=== PATIENT | male | born 1960 | race Caucasian/White ===

== ENCOUNTER → 2017-09-28 09:59 | Outpatient (CLI) | payer SELFPAY ==
--- NOTE | 2017-09-28 10:05 | RAD_ITS ---
STUDY: X-RAY - LUMBAR SPINE REASON FOR EXAM: Male, 57 years old. Low back pain and right-sided pain. TECHNIQUE: 5 view(s) of the lumbar spine were obtained including oblique views. COMPARISON: None FINDINGS: Normal lumbar lordosis. There is no substantial scoliosis. Right 1 anterolisthesis of L5 on S1 with spondylolysis of the pars interarticularis of the L5 vertebrae. Anterior spondylosis at the T11-T12 and T12-L1 levels with disc space narrowing. There is atherosclerotic calcification of the abdominal aorta without a demonstrated aneurysm. RAD/L/S Spine Min 4 Views IMPRESSION: Degenerative changes of the spine, as detailed above. Grade 1 anterolisthesis of L5 on S1 with spondylolysis of the pars intraarticularis of the L5 vertebrae. Electronically Signed: Abner Ortiz MD at 8:21 EDT Tel [phone], Service support ,
--- NOTE | 2017-09-28 10:05 | RAD_ITS ---
STUDY: X-RAY - PELVIS AND RIGHT HIP REASON FOR EXAM: Male, 57 years old. Chronic right hip pain. TECHNIQUE: Radiological exam, hip, unilateral, with pelvis when performed; 2 or 3 views. COMPARISON: None. FINDINGS: There is a non-specific bowel gas pattern. Normal visualized soft tissue structures. Normal bilateral iliac wings, sacroiliac joints and visualized sacrum. Normal bilateral superior and inferior pubic rami. Normal pubic symphysis. Normal bilateral ischial tuberosities. There are osteoarthritic changes of the femoral head with marginal osteophyte formation. There is widening of the femoral neck. Femoral acetabular impingement should be ruled out. There is osteoarthritic spur formation of the acetabular rim. is severe articular joint space narrowing of the hip. RAD/Hip 2-3 Views with Pelvis IMPRESSION: Marked degree of osteoarthritis involving the right hip joint with evidence of femoral acetabular impingement. Electronically Signed: Abner Ortiz MD at 8:19 EDT Tel [phone], Service support ,
== END ==
PROVIDERS: Family Provider Nurse Practitioner Family; PCP Nurse Practitioner Family; Visit Provider Nurse Practitioner Family
DX: M54.31 Sciatica, right side (principal); M25.551 Pain in right hip; G89.29 Other chronic pain
CPT/HCPCS: 72110; 73502

== ENCOUNTER → 2019-02-20 | Outpatient (CLI) | payer SELFPAY ==
[2019-02-20 13:14] VITALS: BMI 37.8
--- NOTE | 2019-02-20 15:07 | VDLE_ITS ---
Reason For Study: Pain RIGHT LEFT CFV is compressible, spontaneous, phasic, CFV is compressible, spontaneous, phasic, competent and demonstrates normal competent, and demonstrates normal augmentation. augmentation. FV is compressible, spontaneous, phasic, competent and demonstrates normal augmentation. POP V is compressible, spontaneous, phasic, competent and demonstrates normal augmentation. T/P Trunk is compressible. PTV is compressible. RT PerV is compressible. Acute superficial vein thrombosis is noted in the right GSV from the knee to prox thigh. Procedure Exam performed in department. A preliminary report was called and/or faxed to [facility]. Interpretation Summary Deep veins of the right lower extremity are patent and compressible segmentally. There is no evidence of right lower extremity deep vein thrombosis. Valvular competence appears intact within the proximal deep venous system on the right . Acute superficial thrombophlebitis is noted in the right great saphenous vein from the knee to the proximal thigh. Ordering Physician: Wan Miguel Referring Physician: Anupam Greco M.D. Performed By: Colleen Hernandez RVT
== END | disposition home or self-care (01) ==
LOC: CVS 15:05
PROVIDERS: Family Provider Family Medicine; PCP Family Medicine; Referring Provider Nurse Practitioner Family; Visit Provider Nurse Practitioner Family
DX: M79.651 Pain in right thigh (principal)
CPT/HCPCS: 93971

== ENCOUNTER → 2020-07-18 09:17 | Outpatient (CLI) | payer SELFPAY ==
[2020-07-17 08:30] VITALS: BMI 28.7
--- NOTE | 2020-07-18 09:20 | US_ITS ---
STUDY: ABDOMINAL ULTRASOUND - RIGHT UPPER QUADRANT REASON FOR VISIT: Male, 60 years old epigastric pain TECHNIQUE: Ultrasound evaluation of the right upper quadrant was performed with real-time and static waters-scale imaging. TECHNICAL QUALITY: Adequate. COMPARISON: None. FINDINGS: Liver: The liver measures 15.4 cm. There is normal echogenicity of the liver. The bile ducts are within normal limits. There is hepatic color flow. The direction of portal flow is hepatopetal. There is no demonstrated mass lesion. Gallbladder: Normal distended gallbladder. The gallbladder wall measures 2.0 mm. There is a negative sonographic Barber''s sign. There is no pericholecystic fluid. There are no gallstones. Common Bile Duct (C.B.D.): The common bile duct measures 3.0 mm. Pancreas: Normal size of the head, body and tail of the pancreas. There is normal echogenicity of the pancreas. There is no demonstrated pancreatic mass or cyst. Right Kidney: Normal size of the right kidney. The right kidney measures 10.1 cm x 6 cm x 6.4 cm. Normal renal cortex. The right cortex measures 2.4 cm. There is no demonstrated renal mass or cyst. There is no right hydronephrosis. US/Gallbladder IMPRESSION: Normal right upper quadrant ultrasound examination. Electronically Signed: Abner Ortiz, at 10:20 EST , Service support ,
[2020-07-18 10:43] LABS: Lipase 104 U/L (73-393)
== END ==
PROVIDERS: PCP Internal Medicine; Referring Provider Surgery; Visit Provider Surgery
DX: R10.13 Epigastric pain (principal)
CPT/HCPCS: 36415; 76705; 83690

== ENCOUNTER 2020-07-29 05:49 | Day surgery (SDC) | payer SELFPAY ==
[2020-07-17 08:30] VITALS: BMI 28.7
--- NOTE | 2020-07-29 06:16 | HP.PCM_ITS ---
Problem List (1) Screening for malignant neoplasm of intestine Status: Acute (2) Epigastric abdominal pain Status: Acute (3) GERD (gastroesophageal reflux disease) Status: Chronic Qualifiers: History and Physical Date of Admission: 07/29/20 Intake Visit Reasons: EGD Chief Complaint: epigastric pain, screening colonoscopy Bending Frame Operator Required: No Is patient in pain?: No Allergies No Known Allergies Allergy (Verified 07/17/20 08:32) Medications loratadine 10 mg tablet 10 mg PO DAILY PRN 03/23/19 [History Confirmed 07/17/20] lisinopril 20 mg tablet 20 mg PO QDAY #90 tab 06/03/20 [Rx Confirmed 07/17/20] famotidine 20 mg tablet 20 mg PO BID #60 tab 07/08/20 [Rx Confirmed 07/17/20] sucralfate 1 gram tablet 1 g PO QACHS #30 tab 07/09/20 [Rx Confirmed 07/17/20] [facility] Medical History (Updated 07/17/20 @ 08:[address] Ivan Kirkland MD) Screening for malignant neoplasm of intestine (Acute) Epigastric abdominal pain (Acute) Degenerative joint disease of right hip (Chronic) Hypertension (Chronic) Sciatica, right side (Acute) GERD (gastroesophageal reflux disease) (Acute) Chronic back pain (Chronic) HTN (hypertension) (Chronic) Osteoarthritis (Chronic) DVT (deep venous thrombosis) (Resolved) Surgical History History of right hip replacement (Acute) Family History Father Heart disease Diabetes Social History (Updated 07/17/20 @ 08:[address] Ivan Kirkland MD) Smoking Status: Never smoker alcohol intake: never substance use type: does not use what type of physical activity do you participate in: none HPI HPI HPI: ANGEL PIMENTEL, is a 60 M who presents to the office today for surgical consultation regarding epigastric pain and abnormal CT imaging. The patient is referred by Dr. Risa Arce written copy my surgical consult recommendations will be returned to him. The patient develops severe epigastric pain and went to the [facility] emergency room on June 28. CT scan was obtained suggesting inflammation centered at the duodenum and pancreatic head uncinate process. Question peptic ulcer disease or duodenitis or focal pancreatitis. It is of note that a CT c hest was also obtained with no pulmonary embolism. The patient was placed on acid reducing medication in the form of pantoprazole and Carafate. That has markedly improved his condition but not completely resolved it. Even last night he had some epigastric left upper quadrant discomfort postprandially. In the emergency room his white blood cell count was 12.33 with a hemoglobin 17.1 hematocrit 50.2 platelet count 259,000 with 77% neutrophils. Urinalysis had greater than 160 ketones. His BUN was 18 and creatinine 1.11. Liver function tests were normal. I do not see that an amylase or lipase was obtained at the time of his emergency room visit. The patient denies bright red blood per rectum or melena. He has not had either an upper endoscopy or a lower endoscopy. He denies family history of colon cancer. He is complaining of sciatica right lower extremity. He states that he has not been paying taking medications like NSAIDs. He has had 3 previous episodes of right lower extremity deep venous thrombosis. It is ironic that he has swelling of his left lower extremity. He states that these previous episodes have been related to travel. He does have an elevated hemoglobin and hematocrit. He is supposed to be on a low-dose aspirin 81 mg daily. This has been recently discontinued because of his epigastric pain. He has not had a previous history of gallstones. HPI HPI HPI: ANGEL PIMENTEL, is a 60 M who presents to the office today for ROS General General: Yes weight change; no appetite, fatigue, colon cancer, breast cancer or weakness HEENT HEENT: No difficulty swallowing, eye injury, eye surgery, swollen glands or hoarseness Endo Endocrine: No thyroid disease, diabetes mellitus, thyroid cancer, Hair loss, heat intolerance or cold intolerance Musc Musculoskeletal: No back problems, arthritis, rheumatoid arthritis, gout or joint pain Cardio Cardiovascular: Yes high blood pressure; no murmur, pacemaker, heart disease, atrial fibrillation, heart attack, heart stent, palpitations, shortness of breat with exertion or chest pain Psych Psychiatric: No depression, anxiety or hearing voices Resp Respiratory: No shortness of breath, No sleep apnea, No cough, No COPD, No asthma, No emphysema, No wheezing Gastro Gastrointestinal: Yes abdominal pain, Yes nausea or vomiting, No diarrhea, No constipation, No blood in stool, Yes acid reflux, No hemorrhoids, No ulcers, No gallbladder problem, No black,tarry stools Dipak Hematologic: No blood thinners, No blood disorders, No bleeding, No anemia, Yes blood clots Neuro Neurologic: No weakness Exam Const General: cooperative, comfortable, no acute distress Nutritional Appearance: obese [facility] Head: normal to inspection Eyes General: appearance normal, both eyes and all related structures Chest Chest palpation & inspection: normal inspection of the chest Resp Effort & Inspection: normal respiratory effort Auscultation: clear to auscultation bilaterally Cardio Palpation: normal PMI Rate: regular rate Rhythm: regular rhythm Heart Sounds: no murmurs GI Palpation: soft, no hepatosplenomegaly Auscultation: normal bowel sounds Other: Overweight Musc Cervical Spine: normal cervical lordosis Skin General: no rashes or lesions noted Neuro Cognition: normal cognition Extrem Other: Mild nonpitting swelling of the left lower extremity as compared to the right. Nontender Psych Affect: normal affect Assessment & Plan Problems 1. Epigastric pain R10.13 2. Screening for malignant neoplasm of intestine Z12.10 Plan Epigastric pain of undetermined etiology. This could be active duodenitis or possible pancreatitis. I do not see that a lipase was obtained on his emergency room visit. I do recommend that we obtain a lipase level today as he had discomfort last night. He relates this discomfort to a postprandial event and his diet was decreased as a consequence. He is markedly improved on the famotidine and sucralfate therapy. He denies any cardiac history. He denies any dyspnea on exertion or exertional discomfort. I recommend a gallbladder ultrasound to further evaluate the potential for etiology to pancreatitis. I recommend to him a combined esophagogastroduodenoscopy with possible biopsy and colonoscopy with possible biopsy or polypectomy as indicated. He is aware of the technique, benefit, risk, alternatives. He has had an opportunity to ask and have questions answered. He has had an opportunity to ask and have questions answered. We will schedule procedure at his discretion. I appreciate the opportunity of assisting with surgical care Copy: Dr. Risa Kirkland M.D., F.A.C.S I have re-examined the patient. There are no clinical changes since date of exam. Procedure Criteria Procedure Type: Elective COVID Risk Discussion: The surgeon/proceduralist and patient have discussed in detail the risk of exposure to and/or potential harm posed by the COVID-19 virus with having a surgery/procedure at this time versus the risk of delaying the surgery/procedure. It is not possible to know either the risk of delaying the surgery or procedure or chance of getting an infection with perfect accuracy, but a joint decision was made between the patient and the surgeon/proceduralist to proceed at this time with the scheduled surgery/procedure as indicated on the consent form.
[2020-07-29 06:22] VITALS: BP 127/88; PULSE 90; RESP 16; TEMP 36.6; O2SAT 100; BMI 34.6
[2020-07-29] MEDS: Lactated Ringers 1,000 ML 100 ML IV (06:33)
--- NOTE | 2020-07-29 07:00 | EGD_PTH ---
PATIENT: ANGEL PIMENTEL LOC: EN U#:[id number] AGE/SX: 60/M ROOM: RE07/29/[address]: Dr. Ivan Kirkland MD : 1960 BED: DIS: 07/29/2020 SPEC #: [id number] RECD: 07/29/20 12:02 STATUS: FILIBERTO BOLIVARBobbi #: [id number] DIEGO: 07/29/20 07:[address]: Ivan Kirkland DEPT: SURGICAL PATHOLOGY RECD BY: Leona Ashraf ENTERED: 07/29/20 12:45 SP TYPE: EGD BIOPSY SONYA DR: Dr. Risa Arce MD Tissues: A - Gastric mucous membrane B - Esophagus, NOS Procedures: Special Stain Group II Surgery Specimen Level IV Alcian Blue/PAS (control) HEADER OPERATION: Colonoscopy, EGD ([facility]) PRE-OP DIAGNOSIS: Epigastric pain; screening for malignant neoplasm of intestine TISSUE SUBMITTED: A - Antrum biopsy for H. pylori and path, B - Distal esophagus biopsies MICROSCOPIC DIAGNOSIS A. Antrum biopsy: Mild gastritis. Focal lymphoid aggregate formation, favor benign. See microscopic description and comment. B. 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 Negative for dysplasia. Focal mild chronic inflammation. See comment. SJ:gregorio 07/30/2020 COMMENT A. The results of immunohistochemistry for Helicobacter pylori will be reported separately ([id number]). B. Alcian blue/PAS stain with matched control is used in the evaluation of the specimen. MICROSCOPIC DESCRIPTION Slides are reviewed. A. The specimen shows fragments of gastric mucosa with chronic inflammatory cell infiltrates in the lamina propria consisting of lymphocytes and plasma cells, consistent with mild chronic gastritis. Focal lymphoid aggregate is noted, favor benign. GROSS DESCRIPTION A - Received in fixative is one container labeled with the patient's name and designated antral biopsy. The specimen consists of one irregular fragment of light hamilton soft tissue that measures 0.3 x 0.3 x 0.1 cm. The specimen is totally submitted in one cassette. B - Received in fixative is one container labeled with the patient's name and designated distal esophagus biopsy. The specimen consists of multiple irregular fragments of light hamilton soft tissue that in aggregate measure 1.5 x 0.5 x 0.1 cm. The specimen is totally submitted in one cassette. / SJ:gregorio 07/29/20 TC:3 CPT: 55065 x2, 99989
--- NOTE | 2020-07-29 07:00 | IMM_PTH ---
PATIENT: ANGEL PIMENTEL LOC: [facility] U#:[id number] AGE/SX: 60/M ROOM: RE07/29/[address]: Dr. Ivan Kirkland MD : 1960 BED: DIS: 07/29/2020 SPEC #: [id number] RECD: 07/29/20 14:00 STATUS: FILIBERTO RENETTA #: [id number] DIEGO: 07/29/20 07:[address]: Ivan Kirkland DEPT: IMMUNOHISTOCHEMISTRY RECD BY: Jade Traore ENTERED: 07/29/20 14:01 SP TYPE: IMMUNO OTHR DR: Dr. Risa Arce MD Tissues: A - Stomach, NOS Procedures: H Pylori (initial) PHYSICIAN & INSTITUTION [place] [address] SPECIMEN INFORMATION: Tissue Source: A - Antrum biopsy Clinical Info: Epigastric pain, screening Specimen Number: [id number] CPT code: 84728 METHODOLOGY: Deparaffinized sections of prefer/formalin-fixed tissue or PAP/DQ stained slides are incubated with monoclonal/polyclonal antibodies/oligonucleotide probes. Localization is made via biotin free immunoperoxidase method. Appropriate controls are performed and reacted as expected. Results on target cell population are indicated in the following table: RESULTS: ANTIBODY / CLONE RESULT Block A H Pylori (polyclonal) negative These tests were developed and their performance characteristics determined by [facility]. They may not have been cleared or approved by the U.S. Food and Drug Administration. The FDA has determined that such clearance or approval is not necessary. INTERPRETATION: A. Antrum, biopsy: Negative for Helicobacter pylori organisms. SJ:gregorio 07/30/2020
[2020-07-29 07:25] VITALS: BP 127/88; BP 98/86; PULSE 74; RESP 16; TEMP 36.3; O2SAT 96
--- NOTE | 2020-07-29 07:27 | OP.CCLET_ITS ---
07/29/2020 Risa Arce [facility] [address] [place] [address] Re : Upper GI endoscopy procedure for Bandar Rangel Dear Dr. Arce This procedure was performed on Wednesday, July 29, 2020. My impressions and recommendations are as follows: Impressions : - LA Grade A reflux esophagitis. Rule out Manuel's esophagus. Biopsied. - Small hiatal hernia. - Z-line variable, 36 cm from the incisors. - Erythematous mucosa in the antrum. Biopsied. - Normal examined duodenum. No findings to correlate with abnormal CT suggesting duodenal inflamation/pancreatic head inflamation Recommendations : - Discharge patient to home. - Resume previous diet. - Continue present medications. - Telephone my office for pathology results in 1 week. My findings are described in the full procedure note, which is enclosed. If I can be of further assistance, please feel free to contact me at Doctor phone number(s): Work: . Sincerely, Ivan Kirkland MD 07/29/2020 7:26:49 AM This report has been signed electronically.
--- NOTE | 2020-07-29 07:27 | OP.EGD_ITS ---
Patient Name: Bandar Rangel Procedure Date: 07/29/2020 6:49 AM Date of : 1960 Age: 60 Procedure: Upper GI endoscopy Indications: Epigastric abdominal pain, Heartburn Providers: Ivan Krikland MD Referring MD: Risa Arce Medicines: See the Anesthesia note for documentation of the administered medications Complications: No immediate complications. Procedure: Pre-Anesthesia Assessment: - Prior to the procedure, a History and Physical was performed, and patient medications and allergies were reviewed. The patient's tolerance of previous anesthesia was also reviewed. The risks and benefits of the procedure and the sedation options and risks were discussed with the patient. All questions were answered, and informed consent was obtained. Prior Anticoagulants: The patient has taken no previous anticoagulant or antiplatelet agents. ASA Grade Assessment: II - A patient with mild systemic disease. After reviewing the risks and benefits, the patient was deemed in satisfactory condition to undergo the procedure. After obtaining informed consent, the endoscope was passed under direct vision. Throughout the procedure, the patient's blood pressure, pulse, and oxygen saturations were monitored continuously. The Endoscope was introduced through the mouth, and advanced to the second part of duodenum. The upper GI endoscopy was accomplished without difficulty. The patient tolerated the procedure well. Scope In: 6:57:30 AM Scope Out: 7:07:20 AM Total Procedure Duration Time 0 hours 9 minutes 50 seconds Findings: LA Grade A (one or more mucosal breaks less than 5 mm, not extending between tops of 2 mucosal folds) esophagitis with no bleeding was found 36 cm from the incisors. Biopsies were taken with a cold forceps for histology. A small hiatal hernia was present. The Z-line was variable and was found 36 cm from the incisors. Diffuse mildly erythematous mucosa without bleeding was found in the gastric antrum. Biopsies were taken with a cold forceps for histology. The examined duodenum was normal. Impression: - LA Grade A reflux esophagitis. Rule out Manuel's esophagus. Biopsied. - Small hiatal hernia. - Z-line variable, 36 cm from the incisors. - Erythematous mucosa in the antrum. Biopsied. - Normal examined duodenum. No findings to correlate with abnormal CT suggesting duodenal inflamation/pancreatic head inflamation Recommendation: - Discharge patient to home. - Resume previous diet. - Continue present medications. - Telephone my office for pathology results in 1 week. Procedure Code(s): --- Professional --- 09950, Esophagogastroduodenoscopy, flexible, transoral; with biopsy, single or multiple Diagnosis Code(s): --- Professional --- K21.0, Gastro-esophageal reflux disease with esophagitis K44.9, Diaphragmatic hernia without obstruction or gangrene K22.8, Other specified diseases of esophagus K31.89, Other diseases of stomach and duodenum R10.13, Epigastric pain R12, Heartburn CPT copyright 2017 [employer]. All rights reserved. The codes documented in this report are preliminary and upon smoke jumper supervisor review may be revised to meet current compliance requirements. Ivan Kirkland MD 07/29/2020 7:26:49 AM This report has been signed electronically. Number of Addenda: 0 Note Initiated On: 07/29/2020 6:49 AM
--- NOTE | 2020-07-29 07:29 | OP.CCLET_ITS ---
07/29/2020 Risa Arce [facility] [address] [place] [address] Re : Colonoscopy procedure for Bandar Rangel Dear Dr. Arce This procedure was performed on Wednesday, July 29, 2020. My impressions and recommendations are as follows: Impressions : - Non-thrombosed internal hemorrhoids, internal hemorrhoids that prolapse with straining, but spontaneously regress to the resting position (Grade II) and enlarged prostate found on digital rectal exam. - Diverticulosis in the sigmoid colon and in the descending colon. - The examination was otherwise normal. - No specimens collected. Recommendations : - Discharge patient to home. - Resume previous diet. - Continue present medications. - Repeat colonoscopy in 10 years for screening purposes. My findings are described in the full procedure note, which is enclosed. If I can be of further assistance, please feel free to contact me at Doctor phone number(s): Work: . Sincerely, Ivan Kirkland MD 07/29/2020 7:29:07 AM This report has been signed electronically.
--- NOTE | 2020-07-29 07:29 | OP.COLON_ITS ---
Patient Name: Bandar Rangel Procedure Date: 07/29/2020 7:07 AM Date of : 1960 Age: 60 Procedure: Colonoscopy Indications: Screening for colorectal malignant neoplasm Providers: Ivan Kirkland MD Referring MD: Risa Arce Medicines: See the Anesthesia note for documentation of the administered medications Patient Profile: Last Colonoscopy: none. The patient's first colonoscopy is today. Complications: No immediate complications. Procedure: Pre-Anesthesia Assessment: - Prior to the procedure, a History and Physical was performed, and patient medications and allergies were reviewed. The patient's tolerance of previous anesthesia was also reviewed. The risks and benefits of the procedure and the sedation options and risks were discussed with the patient. All questions were answered, and informed consent was obtained. Prior Anticoagulants: The patient has taken no previous anticoagulant or antiplatelet agents. ASA Grade Assessment: II - A patient with mild systemic disease. After reviewing the risks and benefits, the patient was deemed in satisfactory condition to undergo the procedure. After I obtained informed consent, the scope was passed under direct vision. Throughout the procedure, the patient's blood pressure, pulse, and oxygen saturations were monitored continuously. The colonoscope was introduced through the anus and advanced to the cecum, identified by appendiceal orifice and ileocecal valve. The colonoscopy was performed without difficulty. The patient tolerated the procedure well. The quality of the bowel preparation was good. The ileocecal valve and the appendiceal orifice were photographed. Scope In: 7:10:13 AM Scope Withdrawal Time 0 hours 5 minutes 59 seconds Scope Out: 7:20:09 AM Total Procedure Duration Time 0 hours 9 minutes 56 seconds Findings: The digital rectal exam findings include non-thrombosed internal hemorrhoids, internal hemorrhoids that prolapse with straining, but spontaneously regress to the resting position (Grade II) and enlarged prostate. Multiple diverticula were found in the sigmoid colon and descending colon. The exam was otherwise without abnormality. Impression: - Non-thrombosed internal hemorrhoids, internal hemorrhoids that prolapse with straining, but spontaneously regress to the resting position (Grade II) and enlarged prostate found on digital rectal exam. - Diverticulosis in the sigmoid colon and in the descending colon. - The examination was otherwise normal. - No specimens collected. Recommendation: - Discharge patient to home. - Resume previous diet. - Continue present medications. - Repeat colonoscopy in 10 years for screening purposes. Procedure Code(s): --- Professional --- 51896, Colonoscopy, flexible; diagnostic, including collection of specimen(s) by brushing or washing, when performed (separate procedure) Diagnosis Code(s): --- Professional --- Z12.11, Encounter for screening for malignant neoplasm of colon K64.1, Second degree hemorrhoids N40.0, Benign prostatic hyperplasia without lower urinary tract symptoms K57.30, Diverticulosis of large intestine without perforation or abscess without bleeding CPT copyright 2017 [employer]. All rights reserved. The codes documented in this report are preliminary and upon supervisor billposting review may be revised to meet current compliance requirements. Ivan Kirkland MD 07/29/2020 7:29:07 AM This report has been signed electronically. Number of Addenda: 0 Note Initiated On: 07/29/2020 7:07 AM
[2020-07-29 07:30] VITALS: BP 107/73; BP 127/88; PULSE 71; RESP 16; O2SAT 97
[2020-07-29 07:35] VITALS: BP 102/76; BP 127/88; PULSE 72; RESP 16; O2SAT 100
[2020-07-29 07:40] VITALS: BP 105/92; BP 127/88; PULSE 73; RESP 16; TEMP 36.2; O2SAT 100
[2020-07-29 08:12] VITALS: BP 127/88
== END 2020-07-29 08:13 | disposition home or self-care (01) ==
LOC: EN 05:51 → AC 05:52
PROVIDERS: PCP Internal Medicine; Referring Provider Internal Medicine; Visit Provider Surgery
PROC: 0DJD8ZZ Inspection of Lower Intestinal Tract, Via Natural or Artificial Opening Endoscopic (ICD-10-PCS; CPT 45378; principal; 2020-07-29 06:55)
DX: Z12.11 Encounter for screening for malignant neoplasm of colon (principal); K29.50 Unspecified chronic gastritis without bleeding; K44.9 Diaphragmatic hernia without obstruction or gangrene; K57.30 Diverticulosis of large intestine without perforation or abscess without bleeding; K64.1 Second degree hemorrhoids; K21.00 Gastro-esophageal reflux disease with esophagitis, without bleeding; K22.8 Other specified diseases of esophagus; K31.89 Other diseases of stomach and duodenum; R10.13 Epigastric pain; Z20.822 Contact with and (suspected) exposure to COVID-19; I10 Essential (primary) hypertension; M16.11 Unilateral primary osteoarthritis, right hip; N40.0 Benign prostatic hyperplasia without lower urinary tract symptoms; E66.3 Overweight; Z68.34 Body mass index [BMI] 34.0-34.9, adult; Z79.899 Other long term (current) drug therapy; Z86.718 Personal history of other venous thrombosis and embolism; Z87.11 Personal history of peptic ulcer disease; Z96.641 Presence of right artificial hip joint
CPT/HCPCS: 43239; 45378; 87426; 88305; 88313; 88342; C9803; J7120; J2405

== ENCOUNTER 2020-09-25 17:30 | Outpatient (RCR) | payer SELFPAY ==
[2020-08-05 08:11] VITALS: BMI 34.6
--- NOTE | 2020-08-06 15:22 | HP.PTEVAL_ITS ---
Patient's Visit Information ANGEL PIMENTEL is a 60 year old M referred to Physical Therapy by Dr. Risa Arce MD with a diagnosis of Radiculopathy. Date of Evaluation: 08/06/20 Physical Therapist: Josiah Harp, CHARLEST, OCS, CSCS - Visit Plan Frequency: 2x /Week Duration: 4-6 Weeks Plan: 2x/week for 3-6 weeks for... 1. HS , hip flexor and quad stretching R. May roll out also. 2. NS core strengthening mat and progress to HEP and general ex. 3. postural NS focus with activity, progress HEP to strengthening adn stretching HS, hip flexors. 4. TENS with MH if needed to leg or LB. - Subjective Pain in R buttock and into front/side to ankle only on the right. It started in April for no apparent reason. No real LBP but has had it in the past. Intemittent LBP , Below knee is constant worsening since April. It feels worse standing in one psoition, walking not bad, sitting can hurt if it is a soft chair or recliner. Sleep is OK, wakes up sometimes if turns. [facility] ADLs are getting done, putting socks on can be tight in leg. Main issue is work, hard to hold something and walk with 10#. Works at [employer]. Off work due to back pain for two weeks. Now feels best when he sits in hickory rocker at home. Hurts upon arising. from chair. Hobbies include hunting which he cannot do as he cannot carry anything. - Pain R lat leg pain. Pain Intensity (Out of 10): 1 Pain Intensity Range: 0, 7 - Objective Walks and trasnfers I. steps reciprocal without rail today, some pain ascending r LE. LB AROM ext max limited, SB min and flexion min. Worse after repeated ext creating pain in leg. reflexes 2/3 patella adn achilles. Sensation LE WNL to gross light touch. + R SLR and + R slump slightly. Strength LE 4/5 throughout without myotomal abnormalities. HS and quads and hip flexors mod tight. R hip moving freely for patient but slightly tighter in piriformis. Pt has been stretching this on his own. - Goals Goal 1:: Pt leg pain aboished and LB 1/10 at worst Goal Time Frame: 4-6 Weeks Goal 2:: Pt I approp EHP to minimize future problems. Goal Time Frame: 4-6 Weeks Goal 3:: Pt stadn at work without increasing pain Goal Time Frame: 4-6 Weeks Goal 4:: Put on shoes and scoks without noticing pain or problem Goal Time Frame: 4-6 Weeks - Rehabilitation Potential Physical Therapy Diagnosis: [id number] causing radiculopathy. Rehabilitation Potential: Fair - Anticipated Interventions Patient/Client Instruction: Educate patient on: Condition, Plan of Care For the Purpose of:: To decrease pain, To increase ROM, To increase tolerance to activity/condition/position, To improve ability of physical actions for home/community/work/leisure Therapeutic Exercise to Include: Strength training, Flexibilty training, Passive ROM, Active ROM, Dynamic Lumbar Stabilization For the Purpose of:: To decrease pain, To increase ROM, To improve muscle performance and motor function, To increase tolerance to activity/co ndition/position, To improve ability of physical actions for home/community/work/leisure Manual Therapy Techniques to Include: Mobilization, Soft tissue mobilization For the Purpose of:: To decrease pain, To increase ROM Thank you for the opportunity to evaluate your patient. For Medicare and Medicare HMO plans, please review the plan of care and approve it. It will need to be FAXED BACK to us at [phone] for Medicare purposes. For Medicare only, by signing this I certify the plan of care. Please let me know if there are questions or concerns regarding this plan of care. Physician Signature: Date:
--- NOTE | 2020-08-25 14:49 | HP.PTREVAL ---
Dr. Risa Arce MD, It has been my pleasure to treat ANGEL PIMENTEL over the last 7 visits for Radiculopathy. Please see the progress note below for an update on the physical therapy plan of care! Subjective: Better. Feeling good. R santiago still hurts a little but not sharp. Stretching at home adn doing gym ex seems to help. Objective/Function: Good LB AROM without pain, has some pulling in L LE with ext but improving movement. Walks normal. Progressing nicely toward goals. Appropriate to cotinue toward I gym program with good prognosis. Plan Plan: continue 2x/week for 2 more weeks to work toward I with gym membership and pt to join as member at that time.. Goals Goal 1:: Pt leg pain aboished and LB 1/10 at worst Goal Time Frame: 4-6 Weeks Goal Progress: 3/10 at times.approp Goal 2:: Pt I approp EHP to minimize future problems. Goal Time Frame: 4-6 Weeks Goal Progress: Goal Met home, needs gym! Goal 3:: Pt stadn at work without increasing pain Goal Time Frame: 4-6 Weeks Goal Progress: Goal Met Goal 4:: Put on shoes and scoks without noticing pain or problem Goal Time Frame: 4-6 Weeks Goal Progress: Goal Met Anticipated Interventions Patient/Client Instruction: Educate patient on: Condition, Plan of Care For the Purpose of:: To decrease pain, To increase ROM, To increase tolerance to activity/condition/position, To improve ability of physical actions for home/community/work/leisure Therapeutic Exercise to Include: Strength training, Flexibilty training, Passive ROM, Active ROM, Dynamic Lumbar Stabilization For the Purpose of:: To decrease pain, To increase ROM, To improve muscle performance and motor function, To increase tolerance to activity/condition/position, To improve ability of physical actions for home/community/work/leisure Manual Therapy Techniques to Include: Mobilization, Soft tissue mobilization For the Purpose of:: To decrease pain, To increase ROM Please do not hesitate to contact me at [phone] by phone or if you have questions or concerns regarding this new plan of care! Sincerely, Josiah Harp, DPT, OCS, CSCS
--- NOTE | 2020-09-25 17:47 | HP.PTDCSUM ---
It has been my pleasure to treat ANGEL PIMENTEL referred by Dr. Risa Arce MD, with the diagnosis of Radiculopathy for a total of 10 visit(s). Discharge Date: 09/25/20 Please see the following information for a summary of their discharge status. Subjective: I'm feeling good. But still has some daily discomfort. Did back into something solid and it hurt down leg. Otherwise pain in R leg has really subsided. Doing the workout is really helpful. Sleep is fine. Fertilized passture uneven surface with 30# hurt. Stretches take it away. No follow up with doctor. R lat leg pain. Pain Intensity (Out of 10): 0 % Improvement: 70 Objective/Function: Good LB AROM without increased pain , has some slight achiness in calf with end range extension R but trasnient. Walks normal. Strength in LE is 5/5 in B LE sagittal plane movements withotu pain. Pt doing well and comfortable continuing on own. Goal 1:: Pt leg pain aboished and LB 1/10 at worst Goal Progress: Progressing Goal 2:: Pt I approp EHP to minimize future problems. Goal Progress: Goal Met Goal 3:: Pt stadn at work without increasing pain Goal Progress: Goal Met Goal 4:: Put on shoes and scoks without noticing pain or problem Goal Progress: Goal Met Plan: d/c Discharge Comments: Pt to continue HEP and gym ex and contact doctor if pain returns. If there are questions or concerns regarding this patient's physical therapy, please feel free to call me at [phone]. Thank you for the referral of this patient. Sincerely, Josiah Harp, DPT, OCS, CSCS
== END 2020-09-25 19:00 | disposition home or self-care (01) ==
LOC: PT 17:30
PROVIDERS: PCP Internal Medicine; Referring Provider Internal Medicine; Visit Provider Internal Medicine
DX: G57.01 Lesion of sciatic nerve, right lower limb (principal); M54.16 Radiculopathy, lumbar region
CPT/HCPCS: 97110; 97161; 97164; 97530

== ENCOUNTER → 2022-05-08 | Outpatient (CLI) | payer SELFPAY ==
[2022-05-08 08:23] LABS: Absolute Lymphocyte Count 2.18 X10^3/uL (0.83-4.51); Absolute Neutrophil Count 3.7 X10^3/uL (2.0-7.7); Basophil# 0.07 X10^3/uL; Eosinophil# 0.36 X10^3/uL; Eosinophils% 5.1 % (0-5); Hematocrit 47.8 % (40-54); Hemoglobin 16.3 g/dL (13.0-16.5); Lymphocyte # 2.18 X10^3/ul (0.83-4.51); Mean Corp Hgb Conc 34.1 g/dL (32-36); Mean Corpuscular Volume 93.7 fL (80-94); Mean Platelet Vol. 8.7 fl (6.2-12.0); Monocyte% 9.9 % (0-10); NRBC Flagged by Analyzer 0 % (0-5); Neutrophil % 52.6 % (47-70); Platelet Count 210 K/mm3 (150-450); RBC Distribution Width CV 12.3 % (11.6-14.6); RBC Distribution Width SD 43.1 fl (35.1-43.9)
[2022-05-08 16:30] LABS: Hemoglobin A1c 5.4 % (3.8-5.6)
[2022-05-08 16:52] LABS: ALB/GLOB Ratio 1.1 RATIO (0.9-2.4); AST(SGOT) 24 U/L (15-37); Alanine Aminotransfer ALT/SGPT 30 U/L (16-61); Albumin, Serum 3.7 g/dL (3.2-5.0); Alkaline Phosphatase 63 U/L (45-117); Anion Gap 5 (5-15); BUN 19 mg/dL (7-18); BUN/Creat Ratio 22.7 RATIO (10-20); Calcium,Total 9.7 mg/dL (8.5-10.1); Chloride 102 mmol/L (98-107); Cholesterol 206 mg/dL (200); Creatinine, Serum 0.84 mg/dL (0.70-1.30); EST Glomerular Filtration Rate 99 mL/min (>60); Est Glom Filt Rate - Afr Amer 120 mL/min (>60); Globulin 3.3 g/dL (2.2-4.2); Glucose 88 mg/dL (74-106); High Density Lipoprotein 49 mg/dL; PSA,Total - Annual Screen 4.22 ng/mL (0.00-4.00); Potassium 3.8 mmol/L (3.5-5.1); Sodium Level 136 mmol/L (136-145); Triglycerides 61 mg/dL; Very Low Density Lipoprotein 12 mg/dL (5-40)
== END | disposition home or self-care (01) ==
LOC: LAB 08:05
PROVIDERS: PCP Internal Medicine; Referring Provider Internal Medicine; Visit Provider Internal Medicine
DX: I10 Essential (primary) hypertension (principal); Z12.5 Encounter for screening for malignant neoplasm of prostate
CPT/HCPCS: 36415; 80053; 80061; 83036; 84153; 85025; G0103

== ENCOUNTER → 2022-09-15 | Outpatient (CLI) | payer SELFPAY ==
--- NOTE | 2022-09-15 10:03 | VDLE_ITS ---
Reason For Study: Blood clot RIGHT LEFT CFV is compressible, spontaneous, phasic, GSV is normal. competent and demonstrates normal CFV is compressible, spontaneous, phasic, augmentation. competent, and demonstrates normal Procedure augmentation. This is a venous duplex using B-mode, color FV is compressible, spontaneous, phasic, flow and spectral Doppler. competent and demonstrates normal Exam performed in department. augmentation. A preliminary report was called and/or faxed POP V is compressible, spontaneous, phasic, to RN @ Yazmin's office. competent and demonstrates normal augmentation. T/P Trunk is compressible. PTV is compressible. LT PerV is compressible. Acute deep vein thrombosis is noted in the left GastrocV. Thrombus filled varicose vein noted in the proximal calf, extending into the GastrocV. VL/Venous Duplex US, Unilateral Interpretation Summary Acute deep venous thrombosis left gastrocnemius vein Superficial thrombophlebitis varicosities left proximal calf and these extend i nto the gastrocnemius vein. Patent and compressible left great saphenous vein Normal flow patterns right common femoral vein Ordering Physician: Risa Arce Referring Physician: Risa Arce M.D. Performed By: Colleen Hernandez RVT
== END | disposition home or self-care (01) ==
PROVIDERS: PCP Internal Medicine; Visit Provider Internal Medicine
DX: I82.409 Acute embolism and thrombosis of unspecified deep veins of unspecified lower extremity (principal)
CPT/HCPCS: 93971